=== PATIENT | male | born 1950 | race Hispanic/Latino ===

== ENCOUNTER 2017-12-12 10:10 | Emergency (ER) | payer OTHER, MEDICARE ==
[~2017-12-12] VITALS: Ht 165.1 cm; Wt 89.8 kg
--- NOTE | 2017-12-12 11:13 | CT SCAN REPORT ---
EXAMINATION: CT HEAD, FACE, AND CERVICAL SPINE CLINICAL INFORMATION: Fall. Facial trauma. Hit head. COMPARISON: No relevant prior imaging. 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 CT acquisition of the head, face, and cervical spine was performed without intravenous administration of contrast. Data was reformatted into multiplanar images at the acquisition workstation. DLP: 1752.63 mGy-cm. FINDINGS: Head: There is focal swelling of the right frontal scalp. The underlying calvarium is intact. No acute intracranial hemorrhage or abnormal extra-axial collection. No intracranial mass effect or midline shift. Lateral and third ventricles are normal. No hydrocephalus. Barclay-white matter differentiation is grossly preserved and there is no evidence of acute territorial infarct. Face: There is a nondisplaced acute fracture of the left nasal bone and mild associated soft tissue swelling. The orbits, pterygoid processes, and zygomatic arches are intact. The mandible is intact. No temporomandibular joint dislocation. There is mild to moderate paranasal sinus disease primarily affecting the maxillary sinuses and ethmoid air cells. Cervical spine: Alignment is normal. Vertebral body heights are preserved. There is no acute fracture. No abnormal prevertebral soft tissue swelling. There is degenerative narrowing of the atlantodental joint space with associated sclerotic subchondral changes and spurring at the superior margin of the anterior C1 arch and at the odontoid tip. Segmental ossification of the posterior longitudinal ligament is visualized at C4-C5 and C5-C6. There is at least mild canal stenosis at these 2 levels. Soft tissues of the neck are unremarkable. IMPRESSION: There is focal swelling of the right frontal scalp and a nondisplaced acute left nasal bone fracture. No acute intracranial hemorrhage. No acute cervical spine fracture.
[2017-12-12 11:14] LABS: ABSOLUTE BASOPHIL COUNT 0 /CUMM (0.0-0.2); ABSOLUTE EOSINOPHIL COUNT 0.3 /CUMM (0.0-0.7); ABSOLUTE GRANULOCYTE CT 5.8 /CUMM (1.4-6.5); ABSOLUTE LYMPH COUNT 1.5 /CUMM (1.2-3.4); ABSOLUTE MONOCYTE COUNT 0.4 /CUMM (0.10-0.60); BASOPHIL % 0.5 % (0.0-2.0); EOSINOPHIL % 4.1 % (0-5); GRANULOCYTE % 72.1 % (42.2-75.2); HEMATOCRIT 39.8 % (42-52); MEAN CORPUSCULAR HGB 27.8 PG (27.0-31.0); MEAN CORPUSCULAR HGB CONC 34.7 G/DL (33.0-37.0); MEAN CORPUSCULAR VOLUME 80.2 FL (80.0-94.0); PLATELET COUNT 272 /CUMM (130-400); RBC DISTRIBUTION WIDTH 13.2 % (11.5-14.5); RED BLOOD CELL CT 4.97 /CUMM (4.70-6.10); WHITE BLOOD CELL COUNT 8.1 /CUMM (4.8-10.8)
--- NOTE | 2017-12-12 11:34 | ED SYNCOPE COMPLAINT ---
History of Present Illness General Chief Complaint: Syncope and Near-Syncope Stated Complaint: SYNCOPE HEAD INJURY Source: patient Exam Limitations: no limitations Vital Signs & Intake/Output Vital Signs & Intake/Output ED Intake and Output 12/13 0000 12/12 1200 Intake Total 0 Output Total Balance 0 Intake, IV 0 Patient 198 lb 197 lb Weight Weight Estimated Reported by Patient Measurement Method Allergies Coded Allergies: No Known Allergies (12/12/17) Triage Note: PT STATES HE STOOD UP BECAME DIZZY AND FELL FACE FIRST. PT HAS PLUM SIZED HEMATOMA OVER RIGHT EYE AND SMALL LAC TO BRIDGE OF NOSE, BLEEDING CONTROLLED. NO LOC, NO THINNERS Triage Nurses Notes Reviewed? yes Timing: single episode today HPI: 67yo male with hx of HTN presents to ED complaining of fall earlier this morning. Patient states he was working in his garage and fell because his left knee gave out on him. The patient fell face forward. He did not black out or loose conciousness. Patient states he had prior knee surgery year ago and has been having issues with his knee giving out intermittently since surgery. Patient hit his head when he fell and sustained laceration to nose and epistaxis. Patient states he controlled his epistaxis while in the waiting room. Patient denies prodrome symptoms prior to his fall and is reporting a mechanical fall. He denies dizziness, chest pain, dyspnea, headache, blurry vision. (Kim Angeles) Past History Travel History Traveled to [place] past 21 day No Medical History Any Pertinent Medical History? see below for history Cardiovascular: hypertension Surgical History Surgical History: non-contributory Psychosocial History What is your primary language Swazi Tobacco Use: Quit >30 days ago ETOH Use: denies use Illicit Drug Use: denies illicit drug use Family History Hx Contributory? No (Kim Angeles) Review of Systems Review of Systems Constitutional: Reports: no symptoms. EENTM: Reports: see HPI. Respiratory: Reports: no symptoms. Cardiovascular: Reports: no symptoms. GI: Reports: no symptoms. Genitourinary: Reports: no symptoms. Musculoskeletal: Reports: see HPI. Skin: Reports: no symptoms. Neurological/Psychological: Reports: no symptoms. All Other Systems: Reviewed and Negative (Kim Angeles) Physical Exam Physical Exam General Appearance: well developed/nourished, no apparent distress, alert, awake Head: swelling above right eye without tenderness to orbits Eyes: Bilateral: normal appearance, PERRL, EOMI. Ears, Nose, Throat: normal pharynx, normal ENT inspection, hearing grossly normal, 1cm superficial lacertion to nasal bridge with tenderness, no gross deformity , abrasion to medial right nare, no septal hematoma, no active epistaxis, no hemotympanum Neck: normal inspection, supple, full range of motion, no midline tenderness Respiratory: normal breath sounds, no respiratory distress, lungs clear Cardiovascular: regular rate/rhythm Back: normal inspection, normal range of motion, no vertebral tenderness Extremities: normal inspection, normal range of motion, right bicepts tenderness without bony tenderness or deformity Psychiatric: awake, alert, oriented x 3 Cranial Nerves: normal hearing, normal speech, PERRL, CN II-XII intact Coordination/Gait: normal finger to nose, normal gait Motor/Sensory: no motor/sensory deficits Skin: nasal lacerations as above Core Measures ACS in differential dx? Yes CVA/TIA Diagnosis: No Sepsis Present: No Sepsis Focused Exam Completed? No (Martina LONGORIA,Kim Correa) Progress Differential Diagnosis: AMI, drug induced syncope, orthostatic syncope, ligament injury, septal hematoma, orbit/facial fracture, ICH, laceration, abrasion Plan of Care: Orders Procedure Date/time Status Telemetry/County Program Technician 12/12 1027 Active TROPONIN LEVEL 12/12 1027 Complete COMPREHENSIVE METABOLIC PANEL 12/12 1027 Complete CBC WITHOUT DIFFERENTIAL 12/12 1027 Complete EKG 12/12 1019 Active Laboratory Tests 12/12/17 1058: Anion Gap 9, Estimated GFR > 60, BUN/Creatinine Ratio 27.0 H, Glucose 116 H, Calcium 9.6, Total Bilirubin 0.7, AST 28, ALT 33, Alkaline Phosphatase 69, Troponin I < 0.01, Total Protein 7.0, Albumin 4.2, Globulin 2.8, Albumin/ Globulin Ratio 1.5, CBC w Diff NO MAN DIFF REQ, RBC 4.97, MCV 80.2, MCH 27.8, MCHC 34.7, RDW 13.2, MPV 9.0, Gran % 72.1, Lymphocytes % 18.1 L, Monocytes % 5.2, Eosinophils % 4.1, Basophils % 0.5, Absolute Granulocytes 5.8, Absolute Lymphocytes 1.5, Absolute Monocytes 0.4, Absolute Eosinophils 0.3, Absolute Basophils 0 Patient is denying any dizziness or prodrome symptoms prior to his fall, he is reporting a mechanical fall. Per triage note patient had dizziness prior to his fall and EKG and labs were ordered to assess for cardiac pathology. The studies are within normal limits. CT head shows nasal fracture which is nondisplaced. Patient's nasal lacerations are superficial, no active bleeding. No suturing is required for these wounds. Informed that he may have epistaxis related to his internal nasal abrasion, it was recommended that he refrain from blowing his nose if possible to prevent epistaxis. Patient was educated on how to treat epistaxis at home and when to return to the ED. patient in no acute distress, ambulatory in the emergency department neurologically intact, vital signs are stable. Patient agrees with the plan of care. He was given a knee brace prescription for his left knee giving out and instructed to follow-up with his orthopedic doctor. The patient was seen by Dr. Munson who agrees with plan of care. Diagnostic Imaging: Viewed by Me: Radiology Read, CT Scan. Discussed w/RAD: Radiology Read, CT Scan. Radiology Impression: PATIENT: ALINA WILSON PRESENT AGE: 67 PATIENT ACCOUNT NO: [id number] : 49 LOCATION: [facility] ORDERING PHYSICIAN: Fred LONGORIA SERVICE DATE: 12/12/17 EXAM TYPE: CAT - CT CERV SPINE WO IV CONTRAST; CT HEAD WO IV CONTRAST; CT MAXILLOFACIAL W/O CON EXAMINATION: CT HEAD, FACE, AND CERVICAL SPINE CLINICAL INFORMATION: Fall. Facial trauma. Hit head. COMPARISON: No relevant prior imaging. TECHNIQUE: Truck Loader images were obtained. CT acquisition of the head, face, and cervical spine was performed without intravenous administration of contrast. Data was reformatted into multiplanar images at the acquisition workstation. DLP: 1752.63 mGy-cm. FINDINGS: Head: There is focal swelling of the right frontal scalp. The underlying calvarium is intact. No acute intracranial hemorrhage or abnormal extra-axial collection. No intracranial mass effect or midline shift. Lateral and third ventricles are normal. No hydrocephalus. Barclay-white matter differentiation is grossly preserved and there is no evidence of acute territorial infarct. Face: There is a nondisplaced acute fracture of the left nasal bone and mild associated soft tissue swelling. The orbits, pterygoid processes, and zygomatic arches are intact. The mandible is intact. No temporomandibular joint dislocation. There is mild to moderate paranasal sinus disease primarily affecting the maxillary sinuses and ethmoid air cells. Cervical spine: Alignment is normal. Vertebral body heights are preserved. There is no acute fracture. No abnormal prevertebral soft tissue swelling. There is degenerative narrowing of the atlantodental joint space with associated sclerotic subchondral changes and spurring at the superior margin of the anterior C1 arch and at the odontoid tip. Segmental ossification of the posterior longitudinal ligament is visualized at C4-C5 and C5-C6. There is at least mild canal stenosis at these 2 levels. Soft tissues of the neck are unremarkable. IMPRESSION: There is focal swelling of the right frontal scalp and a nondisplaced acute left nasal bone fracture. No acute intracranial hemorrhage. No acute cervical spine fracture. DICTATED BY: Jayden Navarro MD DATE/TIME DICTATED:12/12/171104 NURSE OFFICE:[facility] DATE/TIME TRANSCRIBED:1104 CONFIDENTIAL, DO NOT COPY WITHOUT APPROPRIATE AUTHORIZATION. < Electronically signed in Other Vendor System> SIGNED BY: Jayden Navarro MD 12/12/171112 CXR Impression: PATIENT: ALINA WILSON PRESENT AGE: 67 PATIENT ACCOUNT NO: [id number] : 49 LOCATION: [facility] ORDERING PHYSICIAN: Fred LONGORIA SERVICE DATE: 12/12/17 EXAM TYPE: RAD - XRY-CHEST XRAY, TWO VIEWS EXAMINATION: XR CHEST CLINICAL INFORMATION: Syncope. COMPARISON: No relevant prior imaging. TECHNIQUE: 2 views of the chest were obtained. FINDINGS: Lungs are clear and well expanded. No focal consolidative disease, pleural effusion, or pneumothorax. The cardiac silhouette and upper mediastinal contours are normal. No acute osseous finding. IMPRESSION: Unremarkable chest radiograph. No consolidative disease or effusion. DICTATED BY: Jayden Navarro MD DATE/TIME DICTATED:12/12/171130 NURSE OFFICE:[facility] DATE/TIME TRANSCRIBED:12/12/171130 CONFIDENTIAL, DO NOT COPY WITHOUT APPROPRIATE AUTHORIZATION. <Electronically signed in Other Vendor System> SIGNED BY: Jayden Navarro MD 12/12/17 1136 Initial ED EKG: sinus rhythm @63bpm, nonspecific ST changes (Kim Angeles) Departure Departure Disposition: HOME OR SELF CARE Condition: Stable Clinical Impression Primary Impression: Fall Secondary Impressions: Nasal abrasion, Nasal fracture Referrals: Lianna DELEON,Valeri Pierce (PCP/Family) Additional Instructions: You have a broken nose. Try to avoid blowing your nose and sneezing as this may cause a nosebleed. If you had a nosebleed apply pressure using a tissue, hold pressure for at least 5-10 minutes to stop the bleeding. If he have persistent or heavy bleeding please return to the emergency department. He was given a prescription for a soft knee brace, wear this brace to help prevent your knee giving out. Follow-up with orthopedic doctor regarding your left knee giving out. If any worsening symptoms or concerns please return to the emergency department. Please note that there might be incidental findings in your evaluation that are unrelated to the current emergency department visit. Please notify your primary care doctor about this emergency department visit in order to obtain and review all of the testing performed so that these incidental findings can be monitored as needed. If you had an x-ray performed, please understand that some fractures may not be seen on the initial set of x-rays. If your symptoms persist you might need a repeat set of x-rays to check for such a fracture. If you had a laceration evaluated, please understand that foreign bodies such as glass or wood may not be visible to the naked eye or on plain x-rays. If the wound becomes red, swollen, increasingly more painful or if there is any drainage from the wound, please have it reevaluated by a physician for the possibility of a retained foreign body. If you're unable to follow up as outlined in the discharge instructions please return to the emergency department. Thank you for choosing the [facility] Emergency Department for your care. It was a pleasure to serve you today. Departure Forms: Customer Survey General Discharge Information Prescriptions: Current Visit Scripts [soft knee brace] UNIT TP DAILY #1 (Kim Angeles) PA/COMIC ARTIST Co-Sign Statement Statement: ED Attending supervision documentation- [] I saw and evaluated the patient. I have also reviewed all the pertinent lab results and diagnostic results. I agree with the findings and the plan of care as documented in the PA's/COMIC ARTIST's documentation. [X] I have reviewed the ED Record and agree with the PA's/COMIC ARTIST's documentation. [] Additions or exceptions (if any) to the PAs/COMIC ARTIST's note and plan are summarized below: [] (Roque Munson DO)
[2017-12-12 12:03] VITALS: BP 130/66
[2017-12-12] MEDS ORDERED: [UNRECOGNIZED DRUG - SUPPLY] TP (12:36)
== END 2017-12-12 12:49 ==
LOC: ERH 10:10
PROVIDERS: Physician Assistant Medical
DX: S02.2XXA Fracture of nasal bones, initial encounter for closed fracture (principal); S00.31XA Abrasion of nose, initial encounter; W19.XXXA Unspecified fall, initial encounter; Y92.017 Garden or yard in single-family (private) house as the place of occurrence of the external cause
CPT/HCPCS: 71046; 93005; 93010